=== PATIENT | male | born 1970 | race Caucasian/White ===

== ENCOUNTER → 2016-07-23 | Outpatient (CLI) | payer OTHER ==
[~2016-07-23] MED LIST: BLOOD PRESSURE MED PO; CIPR-255 PO; HYDR-5688 PO; LANS30CA12 PO; LOSA50TA6 PO; NAPR-1169 PO; OXYC7.5T65 PO; PHEN-775 PO; POTATAB2 PO
[2016-07-23 15:42] LABS: BASO % 0.2 %; BASO ABS # 0.02 K/uL (0-0.2); COMPLETE YES; EOS % 1.5 %; HEMATOCRIT 48.1 % (42-52); IG% 0.6 %; LYMPH % 18.3 %; LYMPH ABS # 2.33 K/uL (1.2-3.4); MEAN CELL VOLUME 84.4 fL (80-100); MEAN CORPUSCULAR HEMOGLOBIN 28.9 pg (25-34); MEAN CORPUSCULAR HGB CONC 34.3 g/dl (32-36); MEAN PLATELET VOLUME 9.1 fL (7.4-10.4); MONO % 9.1 %; NEUT % 70.3 %; PLATELET COUNT 288 K/uL (130-400); WHITE BLOOD COUNT 12.73 K/uL (4.8-10.8)
--- NOTE | 2016-07-23 15:45 | DIAGNOSTIC IMAGING REPORT ---
CHEST 2 VIEWS ROUTINE CLINICAL HISTORY: Preop chest. Cough. Kidney stones. COMPARISON STUDY: No previous studies for comparison. FINDINGS: The heart is at the upper limits of normal in size. There is no failure. There is no focal pulmonary consolidation. No pleural effusions are visualized.[ IMPRESSION: No active disease in the chest. Electronically signed by: Preet Lawson M.D. 07/23/2016 3:43 PM Dictated Date/Time: 07/23/2016 3:43 PM
[2016-07-23 16:12] LABS: BLOOD UREA NITROGEN 15 mg/dl (7-18); BUN/CREATININE RATIO 16.6 (10-20); CALCIUM 9.6 mg/dl (8.5-10.1); CARBON DIOXIDE 28 mmol/L (21-32); CHLORIDE 102 mmol/L (98-107); CREATININE 0.91 mg/dl (0.60-1.40); GLUCOSE 79 mg/dl (70-99); POTASSIUM 4.1 mmol/L (3.5-5.1); SODIUM 139 mmol/L (136-145)
== END | disposition home or self-care (01) ==
LOC: C.CPL 15:01
PROVIDERS: ATTEND Urology
DX: N20.0 Calculus of kidney (principal)

== ENCOUNTER → 2016-08-02 | Day surgery (SDC) | payer OTHER ==
[2016-07-30 10:11] VITALS: Ht 185.4 cm; Wt 145.1 kg
--- NOTE | 2016-07-30 10:45 | PAT Medication Instructions ---
Service Date Jul 30, 2016. Current Home Medication List Lansoprazole (Prevacid), 30 MG PO QAM Losartan Potassium (Cozaar), 50 MG PO DAILY Naproxen (Naprosyn), 500 MG PO QAM Medication Instructions For Your Scheduled Surgery - Please call PAT department with update of medication name: [Blood Pressure Med], 50 MG PO QAM - Check with surgeon for instructions: Naproxen (Naprosyn), 500 MG PO QAM - Take the following medications the morning of surgery with a sip of water: Lansoprazole (Prevacid), 30 MG PO QAM If you have any questions please call us at [phone] (Belinda Arnold PA-C) or [phone] or [phone] Patient called in with blood pressure information; patient takes Losartan 50mg QAM. Medication list updated. Patient advised to hold Losartan AM of surgery. Belinda Arnold PA-C
[2016-07-30 11:48] LABS: HEMATOCRIT 44.2 % (42-52); MEAN CELL VOLUME 85.2 fL (80-100); MEAN CORPUSCULAR HEMOGLOBIN 30.3 pg (25-34); MEAN CORPUSCULAR HGB CONC 35.5 g/dl (32-36); PLATELET COUNT 370 K/uL (130-400); RED BLOOD COUNT 5.19 M/uL (4.7-6.1); WHITE BLOOD COUNT 10.25 K/uL (4.8-10.8)
[~2016-08-02] VITALS: Ht 185.4 cm; Wt 145.1 kg
[~2016-08-02] MED LIST changes: +ATROPINE SULFATE 0.1 MG/ML 5ML SYR IV PRN; -BLOOD PRESSURE MED PO; +CIPROFLOXACIN / D5W 400 MG IV SCH; +DEXAMETHASONE SOD INJ 4 MG/ML VIAL IV PRN; +EpHEDrine SULFATE INJ 50 MG/ML AMP IV PRN; +FENTANYL CITRATE INJ 50 MCG/1 ML 2 ML VIAL IV PRN; +KETOROLAC TROMETHAMINE 30 MG/ML VIAL IV. PRN; +LABETALOL HCL IV 5 MG/ML 20ML IV PRN; +LACTATED RINGER'S 1000ML 1,000 ML IV SCH; +METOCLOPRAMIDE HCL INJ 5 MG/ML 2 ML VIAL IV PRN; +MoRPHine SULFATE 10 MG/ML CARP/VIAL IV PRN; +ONDANSETRON INJ 2 MG/ML 2 ML VIAL IV PRN; +PHENYLEPHRINE 100MCG/ML 5ML SYR IV PRN
--- NOTE | 2016-08-02 10:52 | DIAGNOSTIC IMAGING REPORT ---
KUB CLINICAL HISTORY: Nephrolithiasis. FINDINGS: 2 AP supine abdominal radiographs are correlated with abdominal CT dated 06/16/2016. There is a nonobstructed abdominal bowel gas pattern. There are 2 nonobstructing calculi projecting over the upper pole of the left kidney. These measure up to 5 mm and are similar to the recent CT scan. No calcifications are seen projecting over the right kidney or along the course of the ureters. The bony structures appear intact. IMPRESSION: Nonobstructing left renal calculi, similar in appearance to the 06/16/2016 CT scan. Electronically signed by: Josemanuel Ibarra M.D. 08/02/2016 10:51 AM Dictated Date/Time: 08/02/2016 10:49 AM
--- NOTE | 2016-08-02 11:53 | Progress Note ---
Progress Note Pt presented for ESWL today, but reported he failed to hold his naproxen prior to the surgery - we have discussed the risks of performing the procedure while taking this medication, and I have recommended we reschedule the surgery
== END | disposition home or self-care (01) ==
LOC: C.RAD1850 10:33
PROVIDERS: ATTEND Urology
DX: N20.0 Calculus of kidney (principal); R11.0 Nausea; I10 Essential (primary) hypertension; K25.9 Gastric ulcer, unspecified as acute or chronic, without hemorrhage or perforation; M19.90 Unspecified osteoarthritis, unspecified site; Z84.1 Family history of disorders of kidney and ureter; Z53.8 Procedure and treatment not carried out for other reasons

== ENCOUNTER → 2016-08-09 | Day surgery (SDC) | payer OTHER ==
[2016-08-05 14:39] VITALS: Ht 185.4 cm; Wt 145.0 kg
[~2016-08-09] VITALS: Ht 185.4 cm; Wt 145.0 kg
[~2016-08-09] MED LIST changes: -CIPROFLOXACIN / D5W 400 MG IV SCH; +CIPROFLOXACIN 400MG / D5W IV SCH; -DEXAMETHASONE SOD INJ 4 MG/ML VIAL IV PRN; +FENTANYL CITRATE INJ 50 MCG/1 ML 2 ML VIAL ONE; +FLUMAZENIL 0.1 MG/1 ML 10 ML VIAL IV PRN; +HYDROmorphone INJ 2 MG/ML SYR/VIAL IV PRN; -KETOROLAC TROMETHAMINE 30 MG/ML VIAL IV. PRN; +LIDOCAINE HCL 2% 2 ML VIAL (20MG/ML) ONE; +MEPERIDINE HCL 25 MG/ML CARP IV PRN; -METOCLOPRAMIDE HCL INJ 5 MG/ML 2 ML VIAL IV PRN; +MIDAZOLAM HCL 1 MG/ML 2ML VIAL ONE; -MoRPHine SULFATE 10 MG/ML CARP/VIAL IV PRN; +NALOXONE HCL 0.4 MG/1 ML VIAL/CARP IV PRN; +OXYCODONE/ACETAMINOPHEN 5-325 TAB ONE; +OXYCODONE/ACETAMINOPHEN 5-325 TAB PO PRN; +PROPOFOL IV EMULSION 10 MG/ML 20 ML VIAL IV ONE
--- NOTE | 2016-08-09 10:10 | DIAGNOSTIC IMAGING REPORT ---
KUB HISTORY: N20.0 Kidney [id number] COMPARISON: KUB 08/02/2016. FINDINGS: The bowel gas pattern is unremarkable. There are no dilated loops of small bowel to suggest an obstruction. No right renal or ureteral calculi. There are 2 left renal calculi with the largest measuring 5 mm. No pneumoperitoneum or pneumatosis. IMPRESSION: Stable left-sided nephrolithiasis. Electronically signed by: Wilton Inman M.D. 08/09/2016 10:08 AM Dictated Date/Time: 08/09/2016 10:07 AM
--- NOTE | 2016-08-09 11:02 | History & Physical Bridge Note ---
H&P Re-Evaluation Bridge Note: I have examined the patient, reviewed the History & Physical and in the interval since the performance of the History & Physical I have noted the following changes of clinical significance: No changes noted
--- NOTE | 2016-08-09 12:18 | Discharge Instructions ---
Discharge Instructions Admission Reason for Admission: Stones Discharge Discharge Diagnosis / Problem: Left stones s/p ESWL Discharge Goals Goal(s): Decrease discomfort, Improve function, Improve disease control, Therapeutic intervention Activity Recommendations Activity Limitations: per Instructions/Follow-up section Lifting Limitations: gradually increase as tolerated Exercise/Sports Limitations: rest today May Resume Sexual Activity: when tolerated Shower/Bathe: no limitations Driving or Machine Use: resume 1 day after discharge . Instructions / Follow-Up Instructions / Follow-Up Follow-up as planned in office with KUB Xray prior to visit. Strain urine and bring in stone fragments to visit. Discharge Diet Recommended Diet: Regular Diet (good fluid intake) Procedures Procedures Performed: Left ESWL Pending Studies Studies pending at discharge: no Medical Emergencies . Who to Call and When: Medical Emergencies: If at any time you feel your situation is an emergency, please call 911 immediately. . Non-Emergent Contact Non-Emergency issues call your: Urologist Call Non-Emergent contact if: you have a fever, temperature is above 101, your pain is not controlled, your pain is worsening, your pain is unusual for you, you have any medication questions . . "Provider Documentation" section prepared by Servando Moser. VTE Core Measure Inpt VTE Proph given/why not?: SCD's [place] Drug Monitoring Program Search Results: patient reviewed within database, see additional documentation (regular narcotic Rx from [facility] - short term Rx for post surgical pain provided)
--- NOTE | 2016-08-09 12:54 | [facility] Post Operative Brief Note ---
Immediate Operative Summary Operative Date Aug 09, 2016. Pre-Operative Diagnosis Left Renal Calculi Post-Operative Diagnosis Same Procedure(s) Performed Left Extracorporeal Shock Wave Lithotripsy Surgeon Dr. Robbie Moser Housecleaner Floor Surgeon(s) None Estimated Blood Loss 0 mL Findings Good fragmentation on fluoro Specimens None Drains NA Anesthesia GALMA Complication(s) None Disposition Recovery Room / PACU
--- NOTE | 2016-08-09 13:10 | OPERATIVE REPORT ---
DATE OF OPERATION: 08/09/2016 PREOPERATIVE DIAGNOSIS: Left renal stone. POSTOPERATIVE DIAGNOSIS: Same. PROCEDURE: Left-sided renal extracorporeal shockwave lithotripsy. SURGEON: Dr. Servando Moser. PRESSURE DISPATCHER: None. ANESTHESIA: General anesthesia with laryngeal mask. COMPLICATIONS: None. FINDINGS: Good stone fragmentation on fluoroscopy. DETAILS OF PROCEDURE: The patient was brought to the litho suite. He was correctly identified and the stone was visualized on his most recent x-rays. After the correct time out was performed the patient was positioned over the therapy head. An adequate level of anesthesia was administered. The extracorporeal shockwave lithotripsy treatment was then commenced. Please see the [place] [facility] Management sheet for complete treatment summary. After completion of the procedure the patient was taken to the recovery room in stable condition. I attest to the content of the Intraoperative Record and any orders documented therein. Any exceptio ns are noted below.
[2016-08-09 13:32] VITALS: TEMP 36.9
[2016-08-09 13:40] VITALS: BP 134/87; PULSE 65; O2SAT 97
--- NOTE | 2016-08-09 13:46 | Anesthesia Progress Nt - [facility] ---
Anesthesia Post Op Note Date & Time Aug 09, 2016 at 13:45 Vital Signs Pain Intensity: 0 Vital Signs Past 12 Hours Date Time Temp Pulse Resp B/P Pulse Ox O2 Delivery O2 Flow Rate FiO2 08/09/16 13:23 36.4 124/88 08/09/16 13:22 72 24 08/09/16 13:22 71 24 95 08/09/16 13:18 136/95 08/09/16 13:17 70 17 08/09/16 13:17 70 17 96 08/09/16 13:14 138/94 08/09/16 13:13 138/94 08/09/16 13:12 67 17 08/09/16 13:12 67 17 96 08/09/16 13:08 139/97 08/09/16 13:07 69 20 08/09/16 13:07 69 20 100 08/09/16 13:03 36.4 70 16 152/101 98 Mask 6 08/09/16 13:03 144/101 08/09/16 13:02 72 08/09/16 13:02 72 100 08/09/16 10:28 37.0 74 18 145/99 97 Room Air Notes Mental Status: alert / awake / arousable, participated in evaluation Pt Amnestic to Procedure: Yes Nausea / Vomiting: adequately controlled Pain: adequately controlled Airway Patency, RR, SpO2: stable & adequate BP & HR: stable & adequate Hydration State: stable & adequate Anesthetic Complications: no major complications apparent
== END | disposition home or self-care (01) ==
LOC: X.SURG 09:44
PROVIDERS: ATTEND Urology
DX: N20.0 Calculus of kidney (principal); I10 Essential (primary) hypertension; Z84.1 Family history of disorders of kidney and ureter

== ENCOUNTER → 2016-08-22 | Outpatient (CLI) | payer OTHER ==
[~2016-08-22] MED LIST changes: -ATROPINE SULFATE 0.1 MG/ML 5ML SYR IV PRN; -CIPROFLOXACIN 400MG / D5W IV SCH; -EpHEDrine SULFATE INJ 50 MG/ML AMP IV PRN; -FENTANYL CITRATE INJ 50 MCG/1 ML 2 ML VIAL IV PRN; -FENTANYL CITRATE INJ 50 MCG/1 ML 2 ML VIAL ONE; -FLUMAZENIL 0.1 MG/1 ML 10 ML VIAL IV PRN; -HYDROmorphone INJ 2 MG/ML SYR/VIAL IV PRN; -LABETALOL HCL IV 5 MG/ML 20ML IV PRN; -LACTATED RINGER'S 1000ML 1,000 ML IV SCH; -LIDOCAINE HCL 2% 2 ML VIAL (20MG/ML) ONE; -MEPERIDINE HCL 25 MG/ML CARP IV PRN; -MIDAZOLAM HCL 1 MG/ML 2ML VIAL ONE; -NALOXONE HCL 0.4 MG/1 ML VIAL/CARP IV PRN; -ONDANSETRON INJ 2 MG/ML 2 ML VIAL IV PRN; -OXYCODONE/ACETAMINOPHEN 5-325 TAB ONE; -OXYCODONE/ACETAMINOPHEN 5-325 TAB PO PRN; -PHENYLEPHRINE 100MCG/ML 5ML SYR IV PRN; -PROPOFOL IV EMULSION 10 MG/ML 20 ML VIAL IV ONE
--- NOTE | 2016-08-22 09:28 | DIAGNOSTIC IMAGING REPORT ---
KUB CLINICAL HISTORY: Flank pain. Kidney stones. COMPARISON STUDY: KUB August 09, 2016. FINDINGS: Several left renal calculi measure up to 4 mm. The largest calculus has slightly decreased in size since prior exam. No ureteral calculi or fragments are identified. The bowel gas pattern is normal. IMPRESSION: Left-sided nephrolithiasis. The largest calculus appears to have slightly decreased in size since prior exam. No ureteral calculi or fragments identified. Electronically signed by: Joey Varner M.D. 08/22/2016 9:27 AM Dictated Date/Time: 08/22/2016 9:21 AM
== END | disposition home or self-care (01) ==
LOC: C.RAD 08:15
PROVIDERS: ATTEND Urology
DX: N20.0 Calculus of kidney (principal)

== ENCOUNTER → 2016-08-22 | Outpatient (CLI) | payer OTHER | END | disposition home or self-care (01) | LOC: C.LABSPEC 10:06 | PROVIDERS: ATTEND Urology | DX: N20.0 Calculus of kidney (principal) ==

== ENCOUNTER → 2016-09-13 | Outpatient (CLI) | payer OTHER ==
--- NOTE | 2016-09-13 09:48 | DIAGNOSTIC IMAGING REPORT ---
KUB CLINICAL HISTORY: Nephrolithiasis. FINDINGS: 2 AP supine abdominal radiographs are compared to study dated 08/22/2016 and correlated with abdominal CT dated 06/16/2016. There is a nonobstructed abdominal bowel gas pattern. 2 nonobstructing calculi are again seen projecting over the left kidney and measure up to 4 mm. No calcifications are seen projecting over the right kidney or along the course of the ureters. The bony structures appear intact. IMPRESSION: Nonobstructing left renal calculi, not significantly changed from 08/22/16. Electronically signed by: Josemanuel Ibarra M.D. 09/13/2016 9:46 AM Dictated Date/Time: 09/13/2016 9:45 AM
== END | disposition home or self-care (01) ==
LOC: C.RAD1850 09:36
PROVIDERS: ATTEND Urology
DX: N20.0 Calculus of kidney (principal)

== ENCOUNTER 2016-09-24 10:51 | Day surgery (SDC) | payer OTHER ==
[2016-09-13 12:16] LABS: BASO % 0.2 %; BASO ABS # 0.02 K/uL (0-0.2); COMPLETE YES; HEMATOCRIT 45.7 % (42-52); IG% 0.7 %; LYMPH % 24.6 %; LYMPH ABS # 2.49 K/uL (1.2-3.4); MEAN CELL VOLUME 86.4 fL (80-100); MEAN CORPUSCULAR HEMOGLOBIN 30.1 pg (25-34); MEAN CORPUSCULAR HGB CONC 34.8 g/dl (32-36); MEAN PLATELET VOLUME 9.7 fL (7.4-10.4); MONO % 8.1 %; NEUT % 65.4 %; PLATELET COUNT 322 K/uL (130-400); RED BLOOD COUNT 5.29 M/uL (4.7-6.1); WHITE BLOOD COUNT 10.13 K/uL (4.8-10.8)
[2016-09-13 12:50] LABS: BLOOD UREA NITROGEN 17 mg/dl (7-18); BUN/CREATININE RATIO 18.3 (10-20); CARBON DIOXIDE 27 mmol/L (21-32); CHLORIDE 105 mmol/L (98-107); CREATININE 0.94 mg/dl (0.60-1.40); GLUCOSE 87 mg/dl (70-99); POTASSIUM 4.2 mmol/L (3.5-5.1); SODIUM 140 mmol/L (136-145)
[2016-09-17 12:47] VITALS: BMI 42.0
[~2016-09-24] VITALS: Ht 185.4 cm; Wt 145.4 kg
[~2016-09-24 10:51] MED LIST changes: -CIPR-255 PO; +CIPROFLOXACIN / D5W 400 MG IV SCH; -HYDR-5688 PO; +LACTATED RINGER'S 1000ML 1,000 ML IV SCH; -PHEN-775 PO; -POTATAB2 PO
[2016-09-24 11:09] VITALS: BP 158/88; PULSE 78; TEMP 36.8; O2SAT 96; Ht 185.4 cm; Wt 145.4 kg
[2016-09-24] MEDS ORDERED: FENTANYL CITRATE INJ 50 MCG/1 ML 2 ML VIAL ONE ×3 (12:27→15:06)
[2016-09-24] MEDS ORDERED: DEXAMETHASONE SOD INJ 4 MG/ML VIAL ONE (12:27)
[2016-09-24] MEDS ORDERED: MIDAZOLAM HCL 1 MG/ML 2ML VIAL ONE (12:27)
[2016-09-24] MEDS ORDERED: ONDANSETRON INJ 2 MG/ML 2 ML VIAL ONE (12:27)
[2016-09-24] MEDS ORDERED: LIDOCAINE HCL 2% 2 ML VIAL (20MG/ML) ONE (12:27)
[2016-09-24] MEDS ORDERED: PROPOFOL IV EMULSION 10 MG/ML 20 ML VIAL IV ONE (12:27)
[2016-09-24] MEDS ORDERED: KETOROLAC TROMETHAMINE 30 MG/ML VIAL ONE (14:23)
--- NOTE | 2016-09-24 14:36 | [facility] Post Operative Brief Note ---
Immediate Operative Summary Operative Date Sep 24, 2016. Pre-Operative Diagnosis Left Renal Stone Post-Operative Diagnosis Left Ureteral stone, Urethral stricture Procedure(s) Performed Cystoscopy, Left Ureteroscopy, Laser Lithotripsy; Left Ureteral Stent ([id number]) Placement;l Urethral Dilation Surgeon Dr. Jose Luis Anderson Co Chairman Surgeon(s) None Estimated Blood Loss 20 ml Findings Bulbar urethral stricture; unable to accomodate the scope initially. Dilated with sequential S curve dilators, and then allowed passage of the scope. L kidney with 2 moderate sized stone and one very small stone. All fragmented into pieces deemed safe for spontaneous passage. [id number] ureteral stent placed without difficulty. Specimens None per surgeon Drains [id number] Anesthesia Gen Complication(s) None Disposition Recovery Room / PACU (stable)
[2016-09-24] MEDS ORDERED: CIPR-255 PO (14:38)
[2016-09-24] MEDS ORDERED: PHEN-775 PO (14:38)
[2016-09-24] MEDS ORDERED: HYDR-5688 PO (14:38)
[2016-09-24] MEDS ORDERED: HydrALAZINE HCL 20 MG/ML VIAL ONE (14:50)
[2016-09-24] MEDS ORDERED: LABETALOL HCL IV 5 MG/ML 20ML IV ONE (14:50)
[2016-09-24] MEDS ORDERED: NURSING VERBAL MED ORDER ONE (14:52)
[2016-09-24] MEDS ORDERED: SODIUM CHLORIDE 0.9% 1000ML 1,000 ML IV SCH (14:54)
--- NOTE | 2016-09-24 14:54 | Discharge Instructions ---
Discharge Instructions Date of Service Sep 24, 2016. Admission Reason for Admission: Stones Discharge Discharge Diagnosis / Problem: Treat stones/pain Discharge Goals Goal(s): Decrease discomfort, Improve function, Increase independence, Improve disease control Activity Recommendations Activity Limitations: resume your previous activity Lifting Limitations: none Exercise/Sports Limitations: none May Resume Sexual Activity: when tolerated Shower/Bathe: no limitations Driving or Machine Use: please avoid driving while on pain medications . Instructions / Follow-Up Instructions / Follow-Up Please come to Dr. Anderson's office on 10/02/16 @11:30AM to have your stent removed. Discharge Diet Recommended Diet: Regular Diet Procedures Procedures Performed: Cystoscopy, Left Ureteroscopy, Laser Lithotripsy; Left Ureteral Stent ([id number]) Placement;l Urethral Dilation Pending Studies Studies pending at discharge: no Medical Emergencies . Who to Call and When: Medical Emergencies: If at any time you feel your situation is an emergency, please call 911 immediately. . Non-Emergent Contact Non-Emergency issues call your: Urologist Call Non-Emergent contact if: you have a fever, temperature is above 101.5, your pain is not controlled, your pain is worsening . . "Provider Documentation" section prepared by Romario Evans. VTE Core Measure Inpt VTE Proph given/why not?: Treatment not indicated [place] Drug Monitoring Program Search Results: patient reviewed within database, no issues identified
[2016-09-24] MEDS ORDERED: OXYCODONE/ACETAMINOPHEN 5-325 TAB PO PRN ×2 (15:00)
[2016-09-24] MEDS ORDERED: ONDANSETRON INJ 2 MG/ML 2 ML VIAL IV PRN (15:15)
[2016-09-24] MEDS ORDERED: EpHEDrine SULFATE INJ 50 MG/ML AMP IV PRN (15:15)
[2016-09-24] MEDS ORDERED: ATROPINE SULFATE 0.1 MG/ML 5ML SYR IV PRN (15:15)
[2016-09-24] MEDS: FENTANYL CITRATE INJ 50 MCG/1 ML 2 ML VIAL IV PRN ×3 (15:22→15:40)
--- NOTE | 2016-09-24 15:26 | OPERATIVE REPORT ---
DATE OF OPERATION: 09/24/2016 PREOPERATIVE DIAGNOSIS: Left renal calculi. POSTOPERATIVE DIAGNOSES: Left renal calculi and urethral stricture. PROCEDURE PERFORMED: Cystoscopy, urethral dilation, left ureteroscopy, laser lithotripsy, retrograde pyelogram, and a stent placement 6 [place] x 22-32 cm. ANESTHESIA: General. ESTIMATED BLOOD LOSS: 20 mL. URINE OUTPUT: Not recorded. SPECIMENS: None. COMPLICATIONS: There are no complications. DESCRIPTION OF THE PROCEDURE: Oswaldo Mario was identified in the preoperative holding area. Appropriate informed consents were reviewed and completed and the patient was transported to the operating suite. Upon arrival, he received appropriate preoperative antibiotics in the form of ciprofloxacin as well as general anesthesia. He was placed in supine dorsal lithotomy position, sterilely prepped and draped in standard fashion. I began the case by passing a cystoscope per urethra. This was a 22-[place] scope with 30 degree lens. Inspection of the urethra revealed bulbar urethral stricture which was not navigable with the scope. Therefore, I elected to pass a wire through the lumen on this and guided into the bladder under fluoroscopy. I then withdrew the scope. I then used sequential S dilators to dilate the urethra from 14 [place] to 20 [place]. I was able to then pass the scope and with gentle manipulation, I was able to manipulate the 22 [place] scope through the bulbar stricture and into the bladder. Of note, this caused a bit of bleeding and visualization and was somewhat limited in the bladder as was the fact that he has a very large body habitus and a high bladder neck with limited mobility of the scope. Initial evaluation was attempted to be carried out, no evidence of tumors or other abnormalities within the bladder were appreciated, although again this was a limited evaluation. I began looking for the left ureteral orifice at that time and I found the orifice and I cannulated with a sensor wire which advanced without difficulty. On fluoroscopy, a single shot revealed this seemed to protrude up to the right kidney rather than the left and this was withdrawn. I then followed the ridge further along to the left and cannulated the other UO and advanced successfully into the left kidney without difficulty. I then passed a 10-[place] double lumen catheter over this into the distal ureter without resistance and placed a second wire up to the kidney. I withdrew my cystoscope and a 10-[place] double lumen catheter and reserved one wire as a safety wire and another as a working wire. I then passed a flexible ureteroscope over the working wire without difficulty and under fluoroscopy I advanced this to the kidney. Full renoscopy was carried out at that time. There was a stone visualized within the upper pole art and 2 stones visualized within the mid pole art. The 2 stones in the mid pole, 1 was a very minute fragment and another was approximately 3-4 mm stone. The upper pole stone was additionally about the same size 3-4 mm. I passed a 400 micron laser fiber at that time and I fragmented both of these larger 2 stones into submillimeter pieces and I further fragmented on the small fragment that was seen in the mid pole. I performed a complete repeat renoscopy and I saw no other large retained fragments, no Mohan plaques or other calcifications. I then performed a very careful exit ureteroscopy identifying no lesions or stones within the ureter. After accessing the bladder, I repassed the cystoscope. Visualization remained relatively limited, although I was able to see the ureteral orifice. I opacified the collecting system with [place] and then placed a 6 [place] 22-32 cm stent without difficulty. There was good curl seen in the bladder as well as the kidney. Bladder was decompressed and the case was concluded. There were no complications. The patient tolerated the procedure well, was extubated and taken to the PACU in stable condition. I attest to the content of the Intraoperative Record and any orders documented therein. Any exceptio ns are noted below.
[2016-09-24] MEDS: HYDROmorphone INJ 1 MG/ML SYR IV PRN ×3 (15:36→15:58)
[2016-09-24 16:20] VITALS: BP 133/81; PULSE 75; TEMP 37.2; O2SAT 96
--- NOTE | 2016-09-24 16:27 | Anesthesiology Progress Note ---
Anesthesia Post Op Note Date & Time Sep 24, 2016 at 16:21 Vital Signs Pain Intensity: 2 Vital Signs Past 12 Hours Date Time Temp Pulse Resp B/P Pulse Ox O2 Delivery O2 Flow Rate FiO2 09/24/16 16:10 36.2 09/24/16 16:00 77 20 126/77 95 Room Air 09/24/16 16:00 74 20 149/99 96 Room Air 09/24/16 15:50 85 20 186/117 98 Room Air 09/24/16 15:40 80 20 150/86 97 Room Air 09/24/16 15:30 75 20 183/94 100 Room Air 09/24/16 15:20 69 20 148/79 100 Room Air 09/24/16 15:10 67 20 147/86 100 Room Air 09/24/16 15:00 70 20 181/111 100 Room Air 09/24/16 14:50 70 18 198/111 100 Mask 10 09/24/16 14:38 36 76 16 180/108 100 Mask 10 09/24/16 11:09 36.8 78 18 158/88 96 Room Air Notes Mental Status: alert / awake / arousable, participated in evaluation Pt Amnestic to Procedure: Yes Nausea / Vomiting: adequately controlled Pain: adequately controlled Airway Patency, RR, SpO2: stable & adequate BP & HR: stable & adequate Hydration State: stable & adequate Anesthetic Complications: no major complications apparent The patient was complaining of R lower abdominal pain that was initially radiating to his back in recovery. He is s/p Cystoscopy, Left Ureteroscopy, Laser Lithotripsy; Left Ureteral Stent Placement, Urethral Dilation. He denied any chest pain or shortness of breath. His abdomen was soft with no rebound tenderness, I informed Dr. Anderson who feels the pain is consistent with postoperative pain after this type of procedure. He stated that he will evaluate the patient prior to discharge home. The patient was given fentanyl 100mc IV and Dilaudid 1.5mg IV which significantly improved his pain.
[2016-09-24 16:50] VITALS: BP 154/99; PULSE 76; TEMP 36.9; O2SAT 96
[2016-09-24 17:20] VITALS: BP 155/93; PULSE 74; TEMP 36.3; O2SAT 96
== END 2016-09-24 17:35 | disposition home or self-care (01) ==
LOC: C.ACU 10:51
PROVIDERS: ATTEND Urology
DX: N20.0 Calculus of kidney (principal); M19.90 Unspecified osteoarthritis, unspecified site; I10 Essential (primary) hypertension; Z80.1 Family history of malignant neoplasm of trachea, bronchus and lung; Z83.3 Family history of diabetes mellitus; Z84.1 Family history of disorders of kidney and ureter

== ENCOUNTER → 2016-10-15 | Outpatient (CLI) | payer OTHER ==
[~2016-10-15] MED LIST changes: +CIPR-255 PO; -CIPROFLOXACIN / D5W 400 MG IV SCH; +HYDR-5688 PO; -LACTATED RINGER'S 1000ML 1,000 ML IV SCH; -OXYC7.5T65 PO
--- NOTE | 2016-10-15 15:03 | DIAGNOSTIC IMAGING REPORT ---
KUB CLINICAL HISTORY: Nephrolithiasis. FINDINGS: 2 AP supine abdominal radiographs are compared to study dated 09/13/2016 and correlated with abdominal CT dated 06/16/2016. There is a nonobstructed abdominal bowel gas pattern. No renal calculi are identified in today's examination. Small nonobstructing renal calculi seen on 09/13/2016 are no longer apparent. No calcifications project along the course of the ureters. The bony structures appear intact. IMPRESSION: No renal calculi are identified on today's examination. Small left renal stones seen on 09/13/2016 were not apparent on today's study. Electronically signed by: Josemanuel Ibarra M.D. 10/15/2016 3:01 PM Dictated Date/Time: 10/15/2016 2:58 PM
== END | disposition home or self-care (01) ==
LOC: C.RAD 14:26
PROVIDERS: ATTEND Urology
DX: N20.0 Calculus of kidney (principal); N39.0 Urinary tract infection, site not specified

== ENCOUNTER 2018-02-25 12:27 | Day surgery (SDC) | payer OTHER ==
[2018-02-13 08:42] VITALS: BMI 42.0
--- NOTE | 2018-02-18 15:08 | PAT Medication Instructions ---
Service Date Feb 18, 2018. Current Home Medication List Hydrochlorothiazide (Hctz), 25 MG PO QAM Hydrocodone/Acetaminophen 5MG/325MG (Kent 5MG/325MG), 1 TABLET PO Q4-6H PRN for Pain Lansoprazole (Prevacid), 30 MG PO QAM Losartan Potassium (Cozaar), 50 MG PO QAM Naproxen (Aleve), 40 MG PO QAM Oxycodone/Acetaminophen 5MG/325MG (Percocet 5MG/325MG), 1 TABLET PO Q4H PRN for Pain Tramadol (Ultram), 50 MG PO Q4-6H Medication Instructions For Your Scheduled Surgery - Check with surgeon for instructions: Naproxen (Aleve), 40 MG PO QAM - Hold the following medications the morning of surgery: Hydrochlorothiazide (Hctz), 25 MG PO QAM Losartan Potassium (Cozaar), 50 MG PO QAM - Take the following medications the morning of surgery with a sip of water: Oxycodone/Acetaminophen 5MG/325MG (Percocet 5MG/325MG), 1 TABLET PO Q4H PRN for Pain (okay to take up to 4 hours prior to surgery if needed) Tramadol (Ultram), 50 MG PO Q4-6H(okay to take up to 4 hours prior to surgery if needed) Hydrocodone/Acetaminophen 5MG/325MG ([place]ent 5MG/325MG), 1 TABLET PO Q4-6H PRN for Pain(okay to take up to 4 hours prior to surgery if needed) Lansoprazole (Prevacid), 30 MG PO QAM - Take the following medications as scheduled the night before surgery: Oxycodone/Acetaminophen 5MG/325MG (Percocet 5MG/325MG), 1 TABLET PO Q4H PRN for Pain (if needed) Tramadol (Ultram), 50 MG PO Q4-6H (if needed) Hydrocodone/Acetaminophen 5MG/325MG ([place] 5MG/325MG), 1 TABLET PO Q4-6H PRN for Pain (if needed) If you have any questions please call us at [phone] or [phone] or [phone]
[2018-02-19 12:49] VITALS: BMI 43.0
--- NOTE | 2018-02-19 14:02 | DIAGNOSTIC IMAGING REPORT ---
CHEST 2 VIEWS ROUTINE CLINICAL HISTORY: 47 years-old Male presenting with preoperative assessment. TECHNIQUE: PA and lateral views of the chest were obtained. COMPARISON: 07/23/2016. FINDINGS: Atherosclerosis of the aortic arch. Cardiac silhouette normal in size. Lungs and pleural spaces clear. Degenerative changes of the thoracic spine. Upper abdomen normal. IMPRESSION: 1. No acute cardiopulmonary disease. Electronically signed by: Anshu Michelle M.D. 02/19/2018 2:00 PM Dictated Date/Time: 02/19/2018 2:00 PM
[2018-02-19 14:35] LABS: BASO % 0.3 %; BASO ABS # 0.03 K/uL (0-0.2); EOS % 0.9 %; EOS ABS # 0.09 K/uL (0-0.5); HEMATOCRIT 46.1 % (42-52); HEMOGLOBIN 15.7 g/dL (14.0-18.0); LYMPH % 22.2 %; LYMPH ABS # 2.31 K/uL (1.2-3.4); MEAN CELL VOLUME 87.6 fL (80-100); MEAN CORPUSCULAR HEMOGLOBIN 29.8 pg (25-34); MEAN CORPUSCULAR HGB CONC 34.1 g/dl (32-36); MEAN PLATELET VOLUME 9.8 fL (7.4-10.4); MONO % 8.9 %; MONO ABS # 0.93 K/uL (0.11-0.59); NEUT % 66.7 %; NEUT ABS # 6.96 K/uL (1.4-6.5); PLATELET COUNT 306 K/uL (130-400); RED CELL DISTRIBUTION WIDTH CV 14.9 % (11.5-14.5); RED CELL DISTRIBUTION WIDTH SD 47.3 fL (36.4-46.3); WHITE BLOOD COUNT 10.42 K/uL (4.8-10.8)
[2018-02-19 14:46] LABS: PTT PATIENT 25.1 SECONDS (21.0-31.0)
[2018-02-19 15:06] LABS: CALCIUM 9.4 mg/dl (8.5-10.1); CREATININE 0.99 mg/dl (0.60-1.40); POTASSIUM 3.7 mmol/L (3.5-5.1)
--- NOTE | 2018-02-19 15:07 | HISTORY & PHYSICAL EXAMINATION ---
DATE OF ADMISSION: 02/25/2018 PROCEDURE: Right shoulder arthroscopy, subacromial decompression, revision of distal clavicle excision, and possible rotator cuff revision. HISTORY OF PRESENT ILLNESS: Oswaldo is a 47-year-old male who presents for preoperative evaluation prior to above-mentioned procedure. He has been having pain in his right shoulder off and on for the past several years. He had a right shoulder arthroscopy, SLAP repair, distal clavicle excision, and subacromial decompression performed on 06/12/2017. Since that time, he has done a course of physical therapy, had been referred to Dr. Taylor and had cervical translaminar epidural steroid injection with fluoroscopic guidance. Was also sent to Dr. Nunes for his second opinion. He also had a previous shoulder arthroscopy back in 1999. He had an MRI arthrogram performed on 12/23/2017, which showed postsurgical changes as well as the anterior aspect of the supraspinatus, which revealed at least partial thickness undersurface and bursal surface tearing, with a small amount of fluid in the subacromial-subdeltoid bursa as well as some mild DJD of the AC joint. At this point in time, he has failed conservative measures and would like to proceed with the above-mentioned procedure. PAST MEDICAL HISTORY: 1. Hypertension. 2. GERD. 3. Obesity. He denies a history of high cholesterol, diabetes, or thyroid issues. ALLERGIES: No known drug allergies. MEDICATIONS: 1. Hydrochlorothiazide 25 mg daily. 2. Losartan 50 mg daily. 3. Prevacid. 4. Tramadol 50 mg 1 tablet 3 times a day. PAST SURGICAL HISTORY: Shoulder surgeries as outlined above. FAMILY HISTORY: Noncontributory. SOCIAL HISTORY: Patient consumes alcohol socially. He does use chewing tobacco. REVIEW OF SYSTEMS: Otherwise negative. Please see HPI for pertinent positives. PHYSICAL EXAMINATION: GENERAL: A 47-year-old male, in no acute distress, alert and oriented x3. VITAL SIGNS: He is 6 feet 1 and weighs 322 pounds. His O2 saturation is 98% on room air. Pulse 92, blood pressure is 120/100. HEENT: Normocephalic, atraumatic. CARDIAC: Regular rate and rhythm. No murmurs or gallops appreciated. Resting pulse is 92 beats per minute. RESPIRATORY: Lungs are clear to auscultation without rales or wheezes bilaterally. GASTROINTESTINAL: Abdomen is soft and nontender. Bowel sounds present. EXTREMITIES: Right upper extremity is neurovascularly intact. He has full painless range of motion of his hands, wrists, and elbows. He does have positive impingement findings, Positive Rhodes, positive Neer's, positive empty can test. He has passive forward flexion to 170 degrees, actively to 150 degrees. He has passive external rotation to 80 degrees, active to 45 degrees. MUSCULOSKELETAL: He is able to reach to level L5 with adduction and internal rotation and to C7 with abduction and external rotation. Strength testing with forward flexion and external rotation is 4/5. IMAGING: Right shoulder x-rays were obtained, which revealed degenerative changes of the AC joint, no acute bony pathology noted. MRI findings as outlined in the HPI. IMPRESSION: Chronic right shoulder pain with degenerative joint disease of acromioclavicular joint and at least partial thickness tear of his rotator cuff with history of superior labrum anterior and posterior repair. PLAN: Further care discussed with Oswaldo at this point in time, he understands all risks and benefits of procedure. He has failed conservative measures and would like to proceed with a right shoulder arthroscopy on 02/25/2018. Plan at this time will be to do a subacromial decompression with a revision distal clavicle excision, with possible rotator cuff repair. Would like to do outpatient physical therapy at [facility], [place], will make arrangements to begin on postoperative day 2 or 3. Will use Percocet for postoperative pain management.
[~2018-02-25] VITALS: Ht 185.4 cm; Wt 147.6 kg
[~2018-02-25 12:27] MED LIST changes: +CEFAZOLIN 3000MG IV PUSH 22.5 ML IV SCH; -CIPR-255 PO; +DEXAMETHASONE SOD INJ 4 MG/ML VIAL ONE; +HYDR25TA4 PO; +LACTATED RINGER'S 1000ML 1,000 ML IV SCH; -NAPR-1169 PO; +NAPR1TAB9 PO; +OXYC-57 PO; +ROPIVACAINE 0.5% 5 MG/ML 30 ML VIAL ONE; +TRAM-10 PO
[2018-02-25 12:55] VITALS: BP 132/86; PULSE 84; TEMP 36.9; O2SAT 95; Ht 185.4 cm; Wt 147.6 kg
[2018-02-25] MEDS ORDERED: LABETALOL HCL IV 5 MG/ML 20ML IV PRN (13:45)
[2018-02-25] MEDS ORDERED: MEPERIDINE HCL 25 MG/ML CARP IV PRN (13:45)
[2018-02-25] MEDS ORDERED: ONDANSETRON INJ 2 MG/ML 2 ML VIAL IV PRN ×2 (13:45→16:00)
[2018-02-25] MEDS ORDERED: FENTANYL CITRATE INJ 50 MCG/1 ML 2 ML VIAL IV PRN (13:45)
[2018-02-25] MEDS ORDERED: ATROPINE SULFATE 0.1 MG/ML 5ML SYR IV PRN (13:45)
[2018-02-25] MEDS ORDERED: HYDROmorphone INJ 1 MG/ML SYR IV PRN (13:45)
[2018-02-25] MEDS ORDERED: EpHEDrine SULFATE INJ 50 MG/ML AMP IV PRN (13:45)
[2018-02-25] MEDS ORDERED: BUPIVACAINE 0.25% 30 ML VIAL ONE (14:55)
[2018-02-25] MEDS ORDERED: EpINEphrine INJ 1MG/ML AMP 1 MG/ML AMP ONE (14:55)
[2018-02-25] MEDS ORDERED: MIDAZOLAM HCL 1 MG/ML 2ML VIAL ONE (14:58)
[2018-02-25] MEDS ORDERED: FENTANYL CITRATE INJ 50 MCG/1 ML 2 ML VIAL ONE (14:58)
[2018-02-25] MEDS: EpINEphrine HCL INJ 1 MG/ML 1ML SYRINGE ONE ×2 (15:00→16:00)
[2018-02-25] MEDS ORDERED: PROPOFOL IV EMULSION 10 MG/ML 20 ML VIAL ONE ×2 (15:01→15:48)
[2018-02-25] MEDS ORDERED: SUCCINYLCHOLINE CHLORIDE 20 MG/ML 10 ML VIAL IV ONE (15:01)
[2018-02-25] MEDS ORDERED: DEXAMETHASONE SOD INJ 4 MG/ML VIAL ONE ×2 (15:01→15:59)
[2018-02-25] MEDS ORDERED: LIDOCAINE HCL 2% 2 ML VIAL (20MG/ML) ONE (15:01)
[2018-02-25] MEDS ORDERED: ONDANSETRON INJ 2 MG/ML 2 ML VIAL ONE (15:01)
[2018-02-25] MEDS ORDERED: ROCURONIUM BROMIDE 10 MG/ML 5 ML VIAL ONE (15:01)
[2018-02-25] MEDS ORDERED: ESMOLOL HCL 10 MG/ML 10 ML VIAL ONE (15:38)
[2018-02-25] MEDS ORDERED: BUPIVACAINE/EPINEPHRINE 0.5% MPF 1:200,000 30 ML VIAL ONE (15:58)
[2018-02-25] MEDS ORDERED: GLYCOPYRROLATE INJ 0.2 MG/ML VIAL ONE (16:00)
[2018-02-25] MEDS ORDERED: NEOSTIGMINE METHYLSULFATE 5 MG/5 ML SYR ONE (16:00)
[2018-02-25] MEDS ORDERED: MoRPHine SULFATE 2 MG/ML CARP IV PRN (16:00)
[2018-02-25] MEDS ORDERED: OXYC-57 PO (16:02)
--- NOTE | 2018-02-25 16:07 | [facility] Operative Report ---
Operative Report Operative Date Feb 25, 2018. Pre-Operative Diagnosis Chronic right shoulder pain with degenerative joint disease of acromioclavicular joint and at least partial thickness tear of his rotator cuff with history of superior labrum anterior and posterior repair Post-Operative Diagnosis Chronic right shoulder pain with degenerative joint disease of acromioclavicular joint and at least partial thickness tear of his rotator cuff with history of superior labrum anterior and posterior repair Procedure(s) Performed Right Shoulder Arthroscopy Subacromial Decompression, Revision of acromioplasty , Excision of hypertropic scar Surgeon Dr. Murphy [employer] Set Up Worker Surgeon(s) None Estimated Blood Loss 2cc Findings Patient presents with recurrent right shoulder pain after having previously undergone SLAP lesion repair decompression presents with ongoing shoulder pain is been seen over the last year been through extensive physical therapies had repeat MRIs and second opinions his MRI since that of a tear of his posterior cuff attachment of the supraspinatus with 5 surgeries no evidence of markedly hypertrophic thickened scar in the subacromial space some re-tearing and fraying of his anterior labrum which was debrided back to stable margin no full- thickness cuff tear is demonstrated Specimens None Drains None Anesthesia Type General Regional Complication(s) none Disposition Recovery Room / PACU Indications Patient presents for revision repeat arthroscopy after previously undergone a SLAP repair after continued complaints of pain over the course of the last year at the time surgery above findings were noted the patient been unresponsive to sit to multiple subacromial injections physical therapy anti-inflammatories relative rest activity modifications oral anti-inflammatories and restrictions of activity and presents for scopic evaluation of arthritis the above findings were noted. Description of Procedure After proper prepping draping of the right shoulder region are scop examination in the region of the glenohumeral joint rubeosis fraying and tearing the region of the previous repair although the previous pair was not disrupted this is a frayed edge of the labrum was debrided back to a nice stable margin the intra- articular portion of the supraspinatus subscapularis rotator cuff and the posterior cuff was well visualized noted to be intact no full-thickness tears or attenuation was noted socially subacromial space was revealed markedly thickened hypertrophic scar tissue with significant scar in the region of the posterior supraspinatus cuff insertion is all debrided to stable margin there is a small area of type II acromion which appear to be impinging in this area revision cervical decompression was performed as well as a revision acromioplasty excision of a hypertrophic scar was removed and portals were closed with 4-0 nylon sterile compressive dressing was placed patient was taken to recovery in stable condition operative report dictated by Jeffrey. I attest to the content of the Intraoperative Record and any orders documented therein. Any exceptions are noted below.
--- NOTE | 2018-02-25 16:12 | Discharge Instructions ---
Discharge Instructions Date of Service Feb 25, 2018. Visit Reason for Visit: Right Shoulder Impingement Syndrome, Osteoarthrit Discharge Discharge Diagnosis / Problem: Right shoulder impingement syndrome Discharge Goals Goal(s): Decrease discomfort, Improve function Activity Recommendations Activity Limitations: per Instructions/Follow-up section Anesthesia . Post Anesthesia Instructions: If you have had General Anesthesia or IV Sedation: * Do not drive today. * Resume driving when surgeon permits. * Do not make important decisions or sign legal documents today. * Call surgeon for: 1. Temperature elevations greater than 101 degrees F. 2. Uncontrollable pain. 3. Excessive bleeding. 4. Persistent nausea and vomiting. 5. Medication intolerance (nausea, vomiting or rash). * For nausea and vomiting use only clear liquids such as: tea, soda, bouillon until nausea subsides, then gradually increase diet as tolerated. * If you have any concerns or questions, call your surgeon's office. If physician is unavailable and it is an emergency, call 911 or go to the nearest emergency room. . Instructions / Follow-Up Instructions / Follow-Up [facility] [place] INSTRUCTIONS: SHOULDER ARTHROSCOPY with or without Distal Clavicle Excision SELF CARE INSTRUCTIONS AFTER: A. You are allowed to use your arm actively as comfort allows. Recommend NOT doing repetitive overhead activity or heavy lifting. B. You should start Physical Therapy within 1-3 days from your surgery. You will be provided a prescription with specific restrictions, if needed, at time of discharge. C. You can discontinue the sling as comfort allows within one to two days after surgery. A. At 48 hours post-operatively, you may change your dressing. . (Leave white steri-strips intact if present). Use band-aids and change daily. You are allowed to shower at this time and get the incision area wet, but DO NOT soak or submerge incision area in water. (No baths, swimming pools, hot tubs) B. Do NOT apply soap or any ointment/lotions directly over incision. C. You may use ice as needed to operative shoulder SPECIAL CARE INSTRUCTIONS: VERY IMPORTANT TO READ AND REVIEW A. There are a few signs you need to watch for after you are home. Call [facility] at [phone] if you experience any of the following: a. Increased severe shoulder pain. Some pain is expected especially when you exercise b. Increased swelling in your shoulder or arm; pain or swelling in either upper extremity. (Note: swelling and stiffness is normal and expected for several weeks post op, depending on type of shoulder surgery you had). c. Any fluid or drainage from the incision; redness of the incision. d. Shortness of breath or chest pain. B. Please call [facility] at [phone] if you have any questions or concerns about your operation or recovery. C. Call your physician if: a. Temperature is greater than 101 degrees (F). b. Pain is not relieved by prescribed pain medications. c. Increase drainage or redness from incision. d. Unanswered questions or concerns. D. Pain Medication: a. You will be prescribed pain medication upon discharge that should last till your first post-operative appointment. b. You may also take Advil or Ibuprofen between medication doses if you do not have any contraindication to taking them. c. You may also take Advil or Ibuprofen in place of your pain medication if the pain is tolerable. d. If you experience nausea and/or skin rash, discontinue this medication and contact our office for an alternative medication. e. Caution- narcotic pain medication can cause constipation. FOLLOW UP VISIT: Please call [facility] at [phone] to schedule a follow up appointment 10-14 days from your surgery date. Diet Recommendations Recommended Home Diet: resume previous diet Procedures Procedures Performed: Right Shoulder Arthroscopy Subacromial Decompression, Revision of acromioplasty , Excision of hypertropic scar Pending Studies Studies pending at discharge: no Medical Emergencies . Who to Call and When: Medical Emergencies: If at any time you feel your situation is an emergency, please call 911 immediately. . Non-Emergent Contact Non-Emergency issues call your: Surgeon Call Non-Emergent contact if: temperature is above 101.5, your pain is not controlled, your pain is worsening, wound has increased drainage, wound has increased redness . . "Provider Documentation" section prepared by Rohan Hanna. . [place] Drug Monitoring Program Search Results: patient reviewed within database, no issues identified
--- NOTE | 2018-02-25 16:59 | Anesthesiology Progress Note ---
Anesthesia Post Op Note Date & Time Feb 25, 2018 at 16:59 Vital Signs Pain Intensity: 0 Vital Signs Past 12 Hours Date Time Temp Pulse Resp B/P (MAP) Pulse Ox O2 Delivery O2 Flow Rate FiO2 02/25/18 16:55 36.2 79 22 148/84 93 Room Air 02/25/18 16:45 77 24 166/95 94 Room Air 02/25/18 16:35 76 24 148/94 99 Oxymask 10 02/25/18 16:25 80 24 132/97 99 Oxymask 10 02/25/18 16:19 36.9 86 18 162/97 99 Oxymask 10 02/25/18 12:55 36.9 84 20 132/86 (101) 95 Room Air Notes Mental Status: alert / awake / arousable, participated in evaluation Pt Amnestic to Procedure: Yes Nausea / Vomiting: adequately controlled Pain: adequately controlled Airway Patency, RR, SpO2: stable & adequate BP & HR: stable & adequate Hydration State: stable & adequate Anesthetic Complications: no major complications apparent Block working well in pacu
[2018-02-25 17:02] VITALS: BP 140/90; PULSE 83; TEMP 36.6; O2SAT 95
[2018-02-25 17:24] VITALS: BP 133/83; PULSE 81; TEMP 36.3; O2SAT 95
== END 2018-02-25 17:39 | disposition home or self-care (01) ==
LOC: C.ACU 12:27
PROVIDERS: ATTEND Orthopaedic Surgery
DX: M19.011 Primary osteoarthritis, right shoulder (principal); I10 Essential (primary) hypertension; F17.220 Nicotine dependence, chewing tobacco, uncomplicated; K21.9 Gastro-esophageal reflux disease without esophagitis; E66.01 Morbid (severe) obesity due to excess calories; Z79.899 Other long term (current) drug therapy